=== PATIENT | male | born 1975 | race Hispanic/Latino ===

== ENCOUNTER 2016-12-23 19:53 | Emergency (ER) | payer OTHER ==
[~2016-12-23] VITALS: Ht 190.5 cm; Wt 102.3 kg
[2016-12-23 20:09] VITALS: BP 118/76; PULSE 60; RESP 16; O2SAT 100
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
[2016-12-23] MEDS ORDERED: TdaP Vaccine 0.5 mL Inj IM ONE (22:05)
[2016-12-23 22:40] VITALS: BP 117/73; PULSE 65; RESP 20; O2SAT 100
== END 2016-12-23 22:40 | disposition home or self-care (01) ==
LOC: SED 19:53
DX: S41.112A Laceration without foreign body of left upper arm, initial encounter (principal); W26.0XXA Contact with knife, initial encounter; Y93.89 Activity, other specified; Y92.69 Other specified industrial and construction area as the place of occurrence of the external cause; Y99.0 Civilian activity done for income or pay; Z23 Encounter for immunization